=== PATIENT | female | born 1995 | race Caucasian/White ===

== ENCOUNTER 2020-01-23 16:21 | Emergency (ER) | payer OTHER ==
[~2020-01-23] VITALS: Ht 175.3 cm; Wt 128.8 kg
[2020-01-23 16:30] VITALS: Ht 175.3 cm; Wt 128.8 kg
[2020-01-23 17:17] LABS: BASOPHIL % 0.6 % (0-2); PLATELET COUNT 295 x10^3mcL (130-400); RED CELL DISTRIBUTION WIDTH 17.8 % (11.5-14.5)
[2020-01-23 17:30] LABS: CARBON DIOXIDE 33.9 mmol/L (21-32); CHLORIDE SERUM 104 mmol/L (98-107); CREATININE SERUM 0.7 mg/dL (0.6-1.0); GFR1 > 60 mL/min; GLUCOSE SERUM 110 mg/dL (74-106); POTASSIUM SERUM 3.6 mmol/L (3.5-5.1); SODIUM SERUM 140 mmol/L (136-145)
[2020-01-23 17:58] VITALS: BP 133/62
== END 2020-01-23 17:58 | disposition home or self-care (01) ==
LOC: ED 16:21
PROVIDERS: Emergency Medicine
DX: N93.8 Other specified abnormal uterine and vaginal bleeding (principal)

== ENCOUNTER 2020-05-20 13:05 | Emergency (ER) | payer OTHER, SELFPAY ==
[~2020-05-20] VITALS: Ht 175.3 cm; Wt 113.4 kg
[2020-05-20 13:09] VITALS: Ht 175.3 cm; Wt 113.4 kg
[2020-05-20 15:48] VITALS: BP 130/86
== END 2020-05-20 15:48 | disposition home or self-care (01) ==
LOC: ED 13:05
DX: M79.10 Myalgia, unspecified site (principal); R68.83 Chills (without fever); R07.89 Other chest pain; R06.02 Shortness of breath; J45.909 Unspecified asthma, uncomplicated; E66.9 Obesity, unspecified; Z68.36 Body mass index [BMI] 36.0-36.9, adult; Z20.828 Contact with and (suspected) exposure to other viral communicable diseases
CPT/HCPCS: U0003